=== PATIENT | female | born 1955 | race Caucasian/White ===

== ENCOUNTER 2019-07-31 09:18 | Emergency (ER) | payer MEDICARE, OTHER ==
[~2019-07-31] VITALS: Ht 154.9 cm; Wt 177.8 kg
[~2019-07-31 09:18] MED LIST: ALBU18HF INH; OMEP-110 PO
--- NOTE | 2019-07-31 13:39 | NUR ---
FROM LOBBY TO ROOM AT THIS TIME
--- NOTE | 2019-07-31 13:55 | NUR ---
PROVIDER TO BEDSIDE FOR ASSESSMENT
[2019-07-31 14:01] VITALS: BP 164/75
--- NOTE | 2019-07-31 14:04 | NUR ---
ORDERS RECEIVED AT THIS TIME. PT STS MACKEY, FATIGUE AND COUGH SINCE YESTERDAY. WORKS AT [employer], UNSURE IF EXPOSED. VSS AT THIS TIME. AWAITING TESTING AND RESULTS. CALL LIGHT WITHIN REACH. DROPLET PLUS PRECAUTIONS IN PLACE
[2019-07-31 14:45] LABS: BASOPHILS # (AUTO) 0.02 x10^3/uL (0-0.1); BASOPHILS % (AUTO) 0 % (0-1); EOSINOPHILS # (AUTO) 0.02 x10^3/uL (0-0.4); EOSINOPHILS % (AUTO) 0 % (1-7); LYMPHOCYTES # (AUTO) 1.14 x10^3/uL (1-3.4); LYMPHOCYTES % (AUTO) 16 % (22-44); MD NO; MEAN CORPUSCULAR HEMOGLOBIN 28.5 pg (27.0-34.8); MEAN CORPUSCULAR HGB CONC 33.9 g/dL (32.4-35.8); MEAN PLATELET VOLUME 7.9 fL (7.4-10.4); MONOCYTES # (AUTO) 0.87 x10^3/uL (0.2-0.8); MONOCYTES % (AUTO) 12 % (2-9); NEUTROPHILS # (AUTO) 5.29 x10^3/uL (1.8-6.8); NEUTROPHILS % (AUTO) 72 % (42-75); PLATELET COUNT 267 x10^3/uL (130-400); RED BLOOD COUNT 4.76 x10^6/uL (3.82-5.3); RED CELL DISTRIBUTION WIDTH 13.6 % (9.6-15.2)
[2019-07-31 14:46] LABS: ALANINE AMINOTRANSFERASE 139 U/L (12-78); ALBUMIN 3.8 g/dL (3.4-5.0); ANION GAP 6 mmol/L (5-15); CHLORIDE 105 mmol/L (98-107)
[2019-07-31 14:49] LABS: ALKALINE PHOSPHATASE 129 U/L (45-117); BILIRUBIN,TOTAL 0.4 mg/dL (0.2-1.0); CREATININE 0.72 mg/dL (0.55-1.02); TOTAL PROTEIN 7.8 g/dL (6.4-8.2)
--- NOTE | 2019-07-31 14:58 | NUR ---
ALL RESULTS BACK AT THIS TIME, CHART UP FOR RECHECK
== END 2019-07-31 16:04 | disposition home or self-care (01) ==
LOC: ED 14:15
DX: B34.9 Viral infection, unspecified (principal); Z20.828 Contact with and (suspected) exposure to other viral communicable diseases; R74.0 Nonspecific elevation of levels of transaminase and lactic acid dehydrogenase [LDH]; R94.31 Abnormal electrocardiogram [ECG] [EKG]
CPT/HCPCS: 36415; 71045; 80053; 85025; 93005; 99285

== ENCOUNTER 2020-12-24 05:04 | Observation (INO) | payer MEDICARE ==
[~2020-12-24] VITALS: Ht 154.9 cm; Wt 94.4 kg
--- NOTE | 2020-12-24 05:23 | NUR ---
PT PRESENTS TO THE ED WITH CHEST PAIN. PT STATES PAIN HAPPENED YESTERDAY AT 1500, BUT WENT AWAY QUICKLY, AND THEN AGAIN THIS MORNING AT 0100. PT STATES THAT "FARTING" HELPED THE PAIN, BUT IT CAME BACK. PT IS IN A GOWN, RESTING ON GURNEY, AND PLACED ON CONTINUOUS MONITORING.
[2020-12-24] MEDS ORDERED: MAALOX/HYOSCYAMINE/LIDOCAINE 45 ML BTL PO ONE (05:30)
[2020-12-24] MEDS ORDERED: MORPHINE SULFATE 4 MG/ML, 1ML IVPush PRN (05:30)
[2020-12-24] MEDS ORDERED: SODIUM CHLORIDE FLUSH 10ML SYR IVF ONE (05:30)
[2020-12-24] MEDS ORDERED: MORPHINE SULFATE 4 MG/ML, 1ML ONE (05:40)
[2020-12-24] MEDS ORDERED: MAALOX/HYOSCYAMINE/LIDOCAINE 45 ML BTL ONE (05:41)
--- NOTE | 2020-12-24 05:51 | NUR ---
PT GIVEN PAIN MEDICATION, PT REFUSED TO DRINK GI COCKTAIL STATING THAT IT WILL MAKE HER THROW UP, THAT THINKING ABOUT MAKES HER NAUSEOUS. PT THEN STARTED VOMITTING. PT GIVEN VOMIT BAG, WET WASHCLOTH AND TISSUES. PT SITTING ON EDGE OF BED, AND STATES THAT THE PAIN HAS DECREASED.
[2020-12-24 05:56] LABS: BASOPHILS % (AUTO) 1 % (0-1); EOSINOPHILS % (AUTO) 1 % (1-7); LYMPHOCYTES % (AUTO) 29 % (22-44); MEAN CORPUSCULAR HEMOGLOBIN 28.4 pg (27.0-34.8); MEAN CORPUSCULAR HGB CONC 33.7 g/dL (32.4-35.8); MEAN PLATELET VOLUME 7.7 fL (7.4-10.4); MONOCYTES % (AUTO) 7 % (2-9); NEUTROPHILS % (AUTO) 62 % (42-75); PLATELET COUNT 345 x10^3/uL (130-400); RED CELL DISTRIBUTION WIDTH 12.7 % (9.6-15.2)
[2020-12-24] MEDS ORDERED: ONDANSETRON 2MG/ML, 2ML ONE ×2 (05:57→16:10)
[2020-12-24 06:00] LABS: ALANINE AMINOTRANSFERASE 50 U/L (12-78); ALBUMIN 3.9 g/dL (3.4-5.0); ANION GAP 7 mmol/L (5-15); CALCIUM 9.1 mg/dL (8.5-10.1); CHLORIDE 106 mmol/L (98-107); CREATININE 0.87 mg/dL (0.55-1.02)
[2020-12-24] MEDS ORDERED: ONDANSETRON 2MG/ML, 2ML IVPush ONE (06:00)
[2020-12-24 06:04] LABS: ALKALINE PHOSPHATASE 105 U/L (45-117); BILIRUBIN,TOTAL 0.4 mg/dL (0.2-1.0); TROPONIN I < 0.015 ng/mL (0.000-0.045)
[2020-12-24] MEDS ORDERED: OMNIPAQUE 350 MG/ML, 100ML BOTTLE ONE (06:23)
--- NOTE | 2020-12-24 06:52 | NUR ---
BEDSIDE REPORT FROM QUAN SORIANO FOR TRANSFER OF PATIENT CARE.
--- NOTE | 2020-12-24 08:06 | NUR ---
PATIENT REPORTS PAIN LEVEL AT THIS TIME IS A 0/10, VSS, AMBULATED TO BATHROOM WITH STEADY GAIT. WAITING FOR ULTRASOUND TO BE COMPLETED.
[2020-12-24] MEDS ORDERED: SODIUM CHLORIDE 0.9% 1,000 ML IV ONE (09:30)
[2020-12-24] MEDS ORDERED: CEFTRIAXONE 1,000 MG in DEXTROSE 5% 50 ML IVPB ONE (09:30)
--- NOTE | 2020-12-24 10:03 | NUR ---
REPORT CALLED TO QUAN MERRITT FOR TRANSFER OF PATIENT CARE.
--- NOTE | 2020-12-24 10:09 | NUR ---
COVID SWAB COLLECTED AND WALKED TO LAB.
--- NOTE | 2020-12-24 10:20 | NUR ---
PATIENT TRANSFERRED TO FLOOR IN STABLE CONDITION VIA GURNEY WITH [employer]CTION[employer] ANALYST. ALL PATIENT BELONGINGS TAKEN TO FLOOR WITH PATIENT.
[2020-12-24 14:15] VITALS: BP 146/62
[2020-12-24] MEDS ORDERED: CHLORHEXIDINE 15 ML UDC ONE (14:59)
[2020-12-24] MEDS ORDERED: CHLORHEXIDINE 15 ML UDC PO ONE (15:00)
[2020-12-24] MEDS ORDERED: BUPIVACAINE/PF 0.25% ONE (15:59)
[2020-12-24] MEDS ORDERED: MIDAZOLAM 1 MG/ML, 2ML ONE (16:00)
[2020-12-24] MEDS ORDERED: FENTANYL PF 250 MCG/5ML ONE (16:01)
[2020-12-24] MEDS ORDERED: CEFAZOLIN 1,000 MG ONE ×2 (16:09)
[2020-12-24] MEDS ORDERED: PROPOFOL 10 MG/ML, 20ML ONE (16:09)
[2020-12-24] MEDS ORDERED: DEXAMETHASONE 4 MG/ML, 1ML ONE ×2 (16:09)
[2020-12-24] MEDS ORDERED: ROCURONIUM 10MG/ML,5ML ONE (16:09)
[2020-12-24] MEDS ORDERED: KETOROLAC 30 MG/1 ML ONE (16:13)
[2020-12-24] MEDS ORDERED: SUGAMMADEX 200 MG/2 ML IVPush ONE (16:13)
[2020-12-24] MEDS ORDERED: BUPIVACAINE/PF-EPI 0.5% 1:200K INFIL ONE (16:40)
[2020-12-24] MEDS ORDERED: hydrALAzine 20 MG/ML, 1ML ONE (17:03)
[2020-12-24] MEDS: hydrALAzine 20 MG/ML, 1ML IV PRN ×2 (17:06→17:51)
[2020-12-24] MEDS ORDERED: DIPHENHYDRAMINE 50 MG/ML, 1ML IVPush PRN ×2 (17:30)
[2020-12-24] MEDS ORDERED: EPHEDRINE 50 MG/ML, 1ML IVPush PRN (17:30)
[2020-12-24] MEDS ORDERED: PROMETHAZINE 12.5 MG SUPP PR PRN (17:30)
[2020-12-24] MEDS ORDERED: ACETAMINOPHEN 325 MG TABLET PO PRN (17:30)
[2020-12-24] MEDS ORDERED: LORazepam 2 MG/ML, 1ML IVPush PRN (17:30)
[2020-12-24] MEDS ORDERED: OXYcodone 5 MG/5 ML ORAL.SOL UDC PO PRN (17:30)
[2020-12-24] MEDS ORDERED: DIAZEPAM 5 MG/ML, 2ML IVPush PRN (17:30)
[2020-12-24] MEDS ORDERED: HYDROmorphone 1 MG/ML, 1ML INJ IVPush PRN (17:30)
[2020-12-24] MEDS ORDERED: MEPERIDINE/PF 25MG/0.5ML IVPush PRN (17:30)
[2020-12-24] MEDS ORDERED: LABETALOL 5MG/ML, 20ML IV PRN (17:30)
[2020-12-24] MEDS ORDERED: PROMETHAZINE 25 MG/ML, 1ML IVPush PRN (17:30)
[2020-12-24] MEDS ORDERED: ALBUTEROL SULFATE 2.5 MG/3 ML NPPB PRN (17:30)
[2020-12-24] MEDS ORDERED: MIDAZOLAM 1 MG/ML, 2ML IV PRN (17:30)
[2020-12-24] MEDS ORDERED: ONDANSETRON 2MG/ML, 2ML IVPush PRN (17:30)
[2020-12-24] MEDS ORDERED: FENTANYL PF 100 MCG/2ML ONE (17:36)
[2020-12-24] MEDS ORDERED: ACETAMINOPHEN 650 MG/20.3 ML UDC ONE (17:36)
[2020-12-24] MEDS ORDERED: OXYcodone 5 MG/5 ML ORAL.SOL UDC ONE (17:37)
[2020-12-24] MEDS: FENTANYL PF 100 MCG/2ML IV PRN ×2 (17:39→17:47)
[2020-12-24 19:52] VITALS: BP 152/83
[2020-12-24 22:27] VITALS: BP 132/73
[2020-12-25 00:13] VITALS: BP 120/72
[2020-12-25 04:25] VITALS: BP 123/73
[2020-12-25 07:27] VITALS: BP 123/72
== END 2020-12-25 09:25 | disposition still patient (30) ==
LOC: ED 06:17 → EDIP 09:16 → INTOOBSV 09:16 → 4NE 10:15 → UNDODISIN 20:00
PROVIDERS: ADMIT Surgery; ATTEND Surgery
DX: K81.0 Acute cholecystitis (principal); Z20.822 Contact with and (suspected) exposure to COVID-19; K21.9 Gastro-esophageal reflux disease without esophagitis; K27.9 Peptic ulcer, site unspecified, unspecified as acute or chronic, without hemorrhage or perforation; I10 Essential (primary) hypertension; K57.32 Diverticulitis of large intestine without perforation or abscess without bleeding; Z87.11 Personal history of peptic ulcer disease; Z79.899 Other long term (current) drug therapy
CPT/HCPCS: 36415; 47562; 71275; 74022; 74175; 74177; 76700; 80053; 83605; 84484; 85025; 87635; 88304; 93005; 96365; 96375; 99285; J0360; J0690; J0696; J1100; J1885; J2250; J2270; J2405; J2704; J3010; J7030; Q9967; G0378